=== PATIENT | male | born 1995 | race Caucasian/White ===

== ENCOUNTER → 2017-03-24 | Outpatient (CLI) | payer MEDICAID | END | disposition home or self-care (01) | LOC: RT 15:42 | DX: D75.9 Disease of blood and blood-forming organs, unspecified (principal) ==

== ENCOUNTER 2018-02-15 16:58 | Inpatient (IN) | payer MEDICAID ==
[~2018-02-15] VITALS: Ht 180.3 cm; Wt 89.4 kg
[2018-02-15 18:14] LABS: PLATELET COUNT 262 x10^3mcL (130-400); RED CELL DISTRIBUTION WIDTH 12.8 % (11.5-14.5)
[2018-02-15 18:46] LABS: ALKALINE PHOSPHATASE 103 U/L (46-116); ALT/SGPT 26 U/L (16-63); AST/SGOT 29 U/L (15-37); BILIRUBIN TOTAL 2.05 mg/dL (0.20-1.00); CALCIUM 9.8 mg/dL (8.5-10.1); CARBON DIOXIDE 28.7 mmol/L (21-32); CHLORIDE SERUM 88 mmol/L (98-107); CREATININE SERUM 1.3 mg/dL (0.7-1.3); GFR1 > 60 mL/min; GLUCOSE SERUM 112 mg/dL (74-106); SODIUM SERUM 134 mmol/L (136-145)
[2018-02-15 18:49] LABS: ALBUMIN 5.1 g/dL (3.4-5.0); TOTAL PROTEIN, SERUM 9.5 g/dL (6.4-8.2)
[2018-02-15 18:51] LABS: POTASSIUM SERUM 2.6 mmol/L (3.5-5.1)
[2018-02-15 19:09] LABS: BAND NEUTROPHIL 9 % (0-10); BASOPHIL 0 % (0-2); MONOCYTE 10 % (0-7); SEGMENTED NEUTROPHILS 63 % (37-75)
[2018-02-15 19:10] LABS: PLATELET MORPHOLOGY PLATELETS NORMAL; ovalocyte/elliptocyte 1+; rbc morphology (normal/abnorm) ABNORMAL (NORMAL)
[2018-02-15] MEDS ORDERED: SEROQUEL50 M1 PO (19:22)
[2018-02-15] MEDS ORDERED: ADDERALL10 MG PO (19:23)
[2018-02-15 19:48] LABS: microscopic required? YES; urine erythrocyte NEGATIVE (NEGATIVE)
[2018-02-15 20:00] LABS: AMPHETAMINE QUAL UR NONE DETECTED (See below)
[2018-02-15 20:10] LABS: MAGNESIUM 2.8 mg/dL (1.8-2.4)
[2018-02-15 20:14] LABS: CHOLESTEROL/HDL RATIO 4.8
[2018-02-15 20:19] LABS: T3 TOTAL 1.34 ng/mL
[2018-02-15 20:20] VITALS: BP 144/83
[2018-02-15 20:21] LABS: FREE T4 1.75 ng/dL (0.76-1.46)
[2018-02-15 20:25] VITALS: Ht 180.3 cm; Wt 89.4 kg
[2018-02-15 20:27] LABS: FREE THYROXINE INDEX 5.4 ug/dL (1.4-4.5); T4(THYROXINE) 14.1 ug/dL (4.7-13.3)
[2018-02-16 06:08] VITALS: BP 125/86
[2018-02-16 07:48] LABS: BASOPHIL % 0.6 % (0-2); PLATELET COUNT 179 x10^3mcL (130-400); RED CELL DISTRIBUTION WIDTH 13.1 % (11.5-14.5)
[2018-02-16 08:03] LABS: CALCIUM 8.4 mg/dL (8.5-10.1); CARBON DIOXIDE 30.7 mmol/L (21-32); CHLORIDE SERUM 97 mmol/L (98-107); CREATININE SERUM 1.1 mg/dL (0.7-1.3); GFR1 > 60 mL/min; GLUCOSE SERUM 96 mg/dL (74-106); MAGNESIUM 2.8 mg/dL (1.8-2.4); PHOSPHOROUS 3.7 mg/dL (2.5-4.9); POTASSIUM SERUM 3.2 mmol/L (3.5-5.1); SODIUM SERUM 135 mmol/L (136-145)
[2018-02-16 08:50] VITALS: BP 100/58
[2018-02-16 13:17] VITALS: BP 100/58
[2018-02-16] MEDS ORDERED: EPZICOM1 TAB PO (13:34)
[2018-02-16] MEDS ORDERED: ZOF4 PO (13:34)
== END 2018-02-16 13:38 | disposition home or self-care (01) | DRG 776 ==
LOC: ED 16:58 → MU 19:20
PROVIDERS: Family Medicine; Specialist
DX: F12.10 Cannabis abuse, uncomplicated (principal); N17.0 Acute kidney failure with tubular necrosis; E86.0 Dehydration; F20.9 Schizophrenia, unspecified; E87.6 Hypokalemia; E83.39 Other disorders of phosphorus metabolism; E87.3 Alkalosis; E05.90 Thyrotoxicosis, unspecified without thyrotoxic crisis or storm; E83.41 Hypermagnesemia; R80.9 Proteinuria, unspecified; Z68.27 Body mass index [BMI] 27.0-27.9, adult; F17.210 Nicotine dependence, cigarettes, uncomplicated
CPT/HCPCS: 84439; 99406; G0480; J2405; J3475; J7030; Q0092

== ENCOUNTER 2018-07-16 08:46 | Emergency (ER) | payer MEDICAID ==
[~2018-07-16] VITALS: Ht 180.3 cm; Wt 85.3 kg
[~2018-07-16 08:46] MED LIST: ADDERALL10 MG PO; EPZICOM1 TAB PO; SEROQUEL50 M1 PO; ZOF4 PO
[2018-07-16 08:51] VITALS: Ht 180.3 cm; Wt 85.3 kg
[2018-07-16 09:59] LABS: PLATELET COUNT 294 x10^3mcL (130-400); RED CELL DISTRIBUTION WIDTH 12.7 % (11.5-14.5)
[2018-07-16 10:13] LABS: BILIRUBIN TOTAL 1.7 mg/dL (0.20-1.00); CALCIUM 10.6 mg/dL (8.5-10.1); CARBON DIOXIDE 32.6 mmol/L (21-32); CREATININE SERUM 2.9 mg/dL (0.7-1.3)
[2018-07-16 10:16] LABS: ALBUMIN 5.5 g/dL (3.4-5.0); POTASSIUM SERUM 2.9 mmol/L (3.5-5.1); TOTAL PROTEIN, SERUM 10.2 g/dL (6.4-8.2)
[2018-07-16 11:09] LABS: BAND NEUTROPHIL 5 % (0-10); BASOPHIL 0 % (0-2); MONOCYTE 6 % (0-7); SEGMENTED NEUTROPHILS 83 % (37-75)
[2018-07-16 20:19] VITALS: BP 133/67
== END 2018-07-16 20:19 | disposition home or self-care (01) ==
LOC: ED 08:46
PROVIDERS: Specialist
DX: J98.2 Interstitial emphysema (principal); E87.6 Hypokalemia; R11.10 Vomiting, unspecified
CPT/HCPCS: J1450; J2405; J2543; J2765; J3370; J3475; J3480; J3490; J7030; J7040; Q9967

== ENCOUNTER 2018-10-16 10:02 | Emergency (ER) | payer MEDICAID ==
[~2018-10-16] VITALS: Ht 180.3 cm; Wt 84.8 kg
[2018-10-16 10:06] VITALS: Ht 180.3 cm; Wt 84.8 kg
[2018-10-16 11:04] LABS: BASOPHIL % 0.2 % (0-2); PLATELET COUNT 228 x10^3mcL (130-400)
[2018-10-16 11:23] LABS: ALBUMIN 4.9 g/dL (3.4-5.0); ALKALINE PHOSPHATASE 76 U/L (46-116); ALT/SGPT 23 U/L (16-63); AST/SGOT 13 U/L (15-37); BILIRUBIN TOTAL 1.6 mg/dL (0.20-1.00); CALCIUM 10.8 mg/dL (8.5-10.1); CARBON DIOXIDE 20.7 mmol/L (21-32); CHLORIDE SERUM 100 mmol/L (98-107); CREATININE SERUM 1.1 mg/dL (0.7-1.3); GFR1 > 60 mL/min; GLUCOSE SERUM 124 mg/dL (74-106); LIPASE 88 IU/L (73-393); SODIUM SERUM 139 mmol/L (136-145)
[2018-10-16 11:27] LABS: TOTAL PROTEIN, SERUM 8.5 g/dL (6.4-8.2)
[2018-10-16 13:14] VITALS: BP 138/78
[2018-10-16 13:34] LABS: AMPHETAMINE QUAL UR NONE DETECTED (See below)
== END 2018-10-16 13:14 | disposition home or self-care (01) ==
LOC: ED 10:02
PROVIDERS: Emergency Medicine
DX: K29.70 Gastritis, unspecified, without bleeding (principal); F20.9 Schizophrenia, unspecified
CPT/HCPCS: J2405; J3490; J7030

== ENCOUNTER 2018-10-17 08:48 | Emergency (ER) | payer MEDICAID ==
[~2018-10-17] VITALS: Ht 180.3 cm; Wt 84.4 kg
[2018-10-17 09:05] VITALS: Ht 180.3 cm; Wt 84.4 kg
[2018-10-17 09:53] LABS: BASOPHIL % 0.4 % (0-2); PLATELET COUNT 242 x10^3mcL (130-400); RED CELL DISTRIBUTION WIDTH 13.3 % (11.5-14.5)
[2018-10-17 09:58] LABS: ALKALINE PHOSPHATASE 86 U/L (46-116); ALT/SGPT 19 U/L (16-63); AST/SGOT 12 U/L (15-37); BILIRUBIN TOTAL 1.83 mg/dL (0.20-1.00); CALCIUM 10.5 mg/dL (8.5-10.1); CARBON DIOXIDE 24.7 mmol/L (21-32); CHLORIDE SERUM 100 mmol/L (98-107); CREATININE SERUM 1.3 mg/dL (0.7-1.3); GFR1 > 60 mL/min; GLUCOSE SERUM 126 mg/dL (74-106); LIPASE 60 IU/L (73-393); SODIUM SERUM 141 mmol/L (136-145)
[2018-10-17 10:22] LABS: microscopic required? YES; urine erythrocyte NEGATIVE (NEGATIVE)
[2018-10-17 10:32] LABS: ALBUMIN 5.2 g/dL (3.4-5.0); POTASSIUM SERUM 2.9 mmol/L (3.5-5.1); TOTAL PROTEIN, SERUM 8.9 g/dL (6.4-8.2)
[2018-10-17 10:36] LABS: AMPHETAMINE QUAL UR NONE DETECTED (See below)
[2018-10-17 12:52] VITALS: BP 122/73
== END 2018-10-17 13:07 | disposition home or self-care (01) ==
LOC: ED 08:48
PROVIDERS: Emergency Medicine
DX: F12.188 Cannabis abuse with other cannabis-induced disorder (principal); E87.6 Hypokalemia; F20.9 Schizophrenia, unspecified; I45.6 Pre-excitation syndrome; Z98.890 Other specified postprocedural states
CPT/HCPCS: J1630; J2060; J3480; J7030